=== PATIENT | male | born 2000 | race African-American/Black ===

== ENCOUNTER 2019-12-24 13:00 | Emergency (ER) | payer OTHER ==
[2019-12-24 13:15] VITALS: BP 108/61
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
== END 2019-12-24 13:50 | disposition left against medical advice (07) ==
LOC: ER 13:00
DX: R51.9 Headache, unspecified (principal); M25.511 Pain in right shoulder; R10.2 Pelvic and perineal pain; V49.9XXA Car occupant (driver) (passenger) injured in unspecified traffic accident, initial encounter; Z53.20 Procedure and treatment not carried out because of patient's decision for unspecified reasons
CPT/HCPCS: 99281